=== PATIENT | male | born 1965 | race Asian ===

== ENCOUNTER 2023-05-24 22:05 | Emergency (ER) | payer MEDICAID ==
[~2023-05-24] VITALS: Ht 162.6 cm; Wt 72.0 kg
[2023-05-24 22:21] VITALS: BP 140/84; PULSE 88; RESP 17; TEMP 98.3
[2023-05-24] MEDS ORDERED: IBUPROFEN 600 MG TABLET PO ONE (22:30)
[2023-05-24] MEDS ORDERED: ACET-66 PO (23:54)
[2023-05-24] MEDS ORDERED: IBUP-1554 PO (23:54)
== END 2023-05-25 00:22 | disposition home or self-care (01) ==
LOC: EMS 22:07
DX: S13.4XXA Sprain of ligaments of cervical spine, initial encounter (principal); S20.229A Contusion of unspecified back wall of thorax, initial encounter; S40.011A Contusion of right shoulder, initial encounter; V69.88XA Occupant (driver) (passenger) of heavy transport vehicle injured in other specified transport accidents, initial encounter; Y93.89 Activity, other specified; Y92.89 Other specified places as the place of occurrence of the external cause; Y99.8 Other external cause status
CPT/HCPCS: 72040; 72070; 72100; 99284; 73030-TC; Z7502; Z7610